=== PATIENT | male | born 1970 | race Caucasian/White ===

== ENCOUNTER 2025-01-16 08:50 | Outpatient (AMB) | payer OTHER, SELFPAY ==
--- NOTE | 2025-01-16 08:58 | A.OFFPC_ITS ---
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 Intake Note: patient here for new patient visit Exercise Science Internship Required: No Allergies No Known Allergies Allergy (Verified 01/16/25 09:12) Medication List - Last Reconciled 01/16/25 by Bernadine Todd CNP No Known Home Meds Tobacco use date assessed: 01/16/25 Dental Screening Dental Screen Date: 01/16/25 Did you have a dental visit in the last 12 months?: Yes Did you have a dental problem in the last 6 months where you did not have access to dental care?: No Was dental information given to patient?: Patient has dentist HPI HPI Comments History of Present Illness Details 54-year-old male presents to establish c are. Prior PCP? - [facility] Last office visit/CPE/labs - 2018 Acute issue(s) - None Past Medical History - Deviated septum Surgical History - Hyperopia, Deviated septum repair Family History - Adopted and does not know much about h is biological relative - Dad: Colon cancer Social History - Nonsmoker. Does not vape. Drinks 1-2 g lasses of wine 4-5 days weekly and 5-6 beers on weekends. Occasional cannabis gummy or smoke a joint - Has been making healthy dietary choice s. Exercises routinely. Generally sleep well Health maintenance - Last eye exam was a year and half ago. Encouraged to follow up with his ophthalmology for routine eye exam - Last dental visit was 6 months ago for cleaning - Last tetanus vaccine was more than 10 years ago; received Tdap vaccine today - Has not been vaccinated for the flu season; declines vaccination - He has not been vaccinated for shingle s. Encouraged to get vaccinated from the local pharmacy - He has never had a colonoscopy. Referr ed to [facility] for [facility]oscopy [facility], [facility] Medical History Deviated septum Family History (Updated 01/16/25 @ 09:11 by Akila Marks MA) Father Colon cancer Social History (Updated 01/16/25 @ 09:04 by Akila Marks MA) Housing: House Patient Tobacco Use Status: Never used Tobacco e-Cigarette/Vaping Use: Never Used Second Hand Smoke Exposure: No Substance Use Type: Marijuana service: No Current occupational status: employed Current occupation: sell whole sale alcohol Current occupational exposures/hazards: No Cognitive needs: No Hearing needs: No Vision needs: Yes Questionnaire PHQ-9 Over the last 2 weeks, how often have you been bothered by any of the following problems? 1. Little interest or pleasure in doing things: not at all 2. Feeling down, depressed, or hopeless: not at all 3. Trouble falling or staying asleep, or sleeping too much: not at all 4. Feeling tired or having little energy: not at all 5. Poor appetite or overeating: not at all 6. Feeling bad about yourself - or that you are a failure or have let yourself or your family down: not at all 7. Trouble concentrating on things, such as reading the newspaper or watching television: not at all 8. Moving or speaking so slowly that other people could have noticed. Or the opposite - being so fidgety or restless that you have been moving around a lot more than usual: not at all 9. Thoughts that you would be better off or of hurting yourself in some way: not at all Total score: 0 Depression Screening Interpretation: Negative Depression Screening Done: Yes 91734 - PHQ-9 Billing: Yes Source: Developed by Drs. Jose Orta, Lauren Fernandez, Jeronimo Campo and colleagues, with an educational myrna from [employer]. Thrive Questionnaire Date Thrive assessed: 01/16/25 I am a: Patient What is your living situation today?: I have a steady place to live Within the past 12 months, did the food you bought not last and you didn't have the money to get more?: Never true Within the past 12 months, did you worry whether your food would run out before you got money to buy more?: Never true Do you have trouble paying for medicines?: No Do you have trouble getting transportation to medical appointments?: No Do you have trouble paying your heating and electricity bill?: No Do you have trouble taking care of your child, family member or friend?: No Do you have trouble with day-to-day activities such as bathing, preparing meals, shopping, managing finances, etc.?: No Are you currently unemployed and looking for a job?: No Are you interested in more education?: No Please select the resources that you would like help with: None Currently or been in a relationship where the following occur: No concerns reported THRIVE Score: 0 AUDIT C Alcohol Use Questionnaire (AUDIT-C) 1. How often do you have a drink containing alcohol?: 2-3 times a week 2. How many drinks containing alcohol do you have on a typical day when you are drinking?: 3 or 4 3. How often do you have six or more drinks on one occasion?: Less than monthly Total Score: 5 Score Reviewed/Action Taken: Yes CAMILLA-7 AMB Questionnaire CAMILLA-7 Date CAMILLA - 7 assessed: 01/16/25 Feeling nervous, anxious, or on edge: 0 = Not at all Not being able to stop or control worryin = Not at all Worrying too much about different things: 0 = Not at all Trouble relaxin = Not at all Being so restless that it is hard to sit still: 0 = Not at all Becoming easily annoyed or irritable: 0 = Not at all Feeling afraid as if something awful might happen: 0 = Not at all Total CAMILLA-7 score (0-4 normal; 5-9 mild; 10-14 moderate; 15-21 severe): 0 Source: Developed by Drs. Jose Orta, Lauren Fernandez, Jeronimo Campo and colleagues, with an educational myrna from [employer]. CAMILLA-7 Assessment Billing CAMILLA-7 Assessment Tool: CAMILLA-7 Assessment 38192 Review of Systems Const Details: Denies chills, Denies fatigue, Denies fever(s), Denies headache(s) and Denies weakness HEENT Denies change in vision, Denies dizziness, Denies headache(s), Denies hearing loss, Denies nasal congestion, Denies sinus pain, Denies sinus pressure and Denies sore throat Card Denies chest pain, Denies lightheadedness, Denies dyspnea and Denies other (palpitations) Resp Denies cough, Denies dyspnea and Denies wheezing GI Denies abdominal pain, Denies melena, Denies hematochezia, Denies change in bowel habits, Denies dyspepsia and Denies nausea Denies hematuria and Denies dysuria Musc Denies abnormal gait, Denies myalgias, Denies arthralgias, Denies numbness and Denies tingling Skin/Breast Denies rash, Denies unusual bruising and Denies wounds Neuro Denies abnormal gait, Denies dizziness, Denies headache(s), Denies memory loss, Denies numbness, Denies Sensory deficit (Neuro), Denies tingling and Denies weakness Psych Denies anxiety, Denies depression and Denies memory loss Endo Denies cold intolerance, Denies fatigue, Denies heat intolerance, Denies polydipsia and Denies polyuria Jose/Lymph Denies easy bleeding and Denies easy bruising Aller/Immun Denies wheezing Physical exam (Primary Care) Vital Signs: Last Vital Signs Temp 97.6 F 01/16/25 09:05 Pulse 70 01/16/25 09:05 Resp 16 01/16/25 09:05 BP 120/80 01/16/25 09:18 Pulse Ox 99 01/16/25 09:05 Oxygen Delivery Method Room Air 01/16/25 09:05 BMI result Body Mass Index 29.6 Tobacco/Smoking Status: Tobacco use Status Tobacco use date assessed 01/16/25 01/16/25 09:05 Patient Tobacco Use Status Never used Tobacco 01/16/25 09:05 e-Cigarette/Vaping Use Never Used 01/16/25 09:05 PHQ-9: PHQ-9 Score PHQ-9: Total score 0 01/16/25 09:41 Depression Screening Interpretation: Negative Thrive Assessment: Date of Thrive Assessment Date Thrive assessed 01/16/25 01/16/25 09:00 Currently or been in a relationship where the following occur: No concerns reported Const Other: General: no acute distress, well developed, alert and awake Nutritional Appearance: well nourished Orientation/consciousness: patient oriented x3 HENMT Head: Yes normocephalic and Yes atraumatic Ears: hearing grossly normal bilaterally and TM's normal bilaterally General nose exam: Normal external nose present and Normal nares present Mouth: Normal oral and palatal mucosa present and moist mucous membranes Teeth and gingiva: dentition normal Throat: Yes oropharynx normal Eyes Pupils: Equal, round and reactive pupils present and Pupil accommodation reflex normal EOM: EOMs intact bilaterally Neck Neck: Yes normal visual inspection, Yes no lymphadenopathy and Yes trachea midline Thyroid: Thyroid normal Carotids: no bruits Lymphatic: no lymphadenopathy noted Chest Chest palpation & inspection: normal inspection of the chest Resp Effort & Inspection: normal respiratory effort Auscultation: clear to auscultation bilaterally Cardio Rate: regular rate Rhythm: regular rhythm Heart sounds: S1 normal heart sound present, S2 normal heart sound present, no gallops, no murmurs and no rubs Bruits: no abdominal aortic bruits and no carotid bruits GI Palpation (GI): No Abdominal aortic bruit present, Soft to palpation, nontender, No hepatosplenomegaly present and No Rebound tenderness present Auscultation: normal bowel sounds General: Yes no CVA tenderness Back/Spine/Pelvis Back: no CVA tenderness Cervical Spine: cervical ROM normal and No Cervical spine tenderness Thoracic/Lumbar Spine: thoraco-lumbar ROM normal, No pain with thoraco-lumbar ROM, No thoracic spinal tenderness and No lumbar spinal tenderness Skin General: warm and dry. Normal skin color. Normal skin turgor Lesions: no lesions Rashes: no rashes Trauma: no lacerations or abrasions Wounds: no wounds Nails: normal Neuro General: patient oriented x3, gait normal and CN's II-XI intact bilaterally Cranial nerves: Yes Equal, round and reactive pupils present Cognition (Neuro): normal cognition Gait exam (Neuro): Normal gait present Motor exam (neuro): 5/5 motor strength present throughout Sensory Exam: No Sensory deficit (Neuro) Deep tendon reflexes (DTR's): Right patellar reflex intensity grade: 2+ and Left patellar reflex intensity grade: 2+ Extrem General: Yes normal to inspection, No edema and No calf tenderness Psych Appearance: grossly normal Affect: normal affect Attitude: cooperative Thought process: Normal thought process present Immunizations Boostrix Tdap 2.5 Lf unit-8 mcg-5 Lf/0.5 mL intramuscular syringe Performing Provider: Bernadine Todd CNP Performing Location: [facility] Administered by: Nevaeh Celeste RN on 01/16/25 09:41 Dose Route Admin Location Dispensed Lot Number Expiration Date [facility] 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 0.5 mL IM Left Deltoid 0.5 mL [id number] 09/23/26 [id number] [employer] VIS Given Date VIS Provided VIS Publication Date 01/16/25 Single Vaccine 21 Eligibility Eligibility Date Funding Source Not [facility] Eligible 01/16/25 Private Coding Level of Care Code New Pt Prev Care 40-64y(76293) Diagnoses Normal physical examination, routine Z00.00 Myopia H52.10 Colon cancer screening Z12.11 Vaccine counseling Z71.85 Laboratory tests ordered as part of a complete physical exam (CPE) Z00.00 Additional Codes CAMILLA-7 Assessment Billing - CAMILLA-7 Assessment Tool: CAMILLA-7 Assessment 74682 ([id number]) PHQ-9 - 47227 - PHQ-9 Billing: Yes ([id number]) Assessment & Plan Assessment & Plan (1) Normal physical examination, routine: Code(s): Z00.00 - Encounter for general adult medical examination without abnormal findings Category: Medical Plan: No significant functional limitation noted. Healthy diet and routine exercise encouraged. Advised to limit alcohol intake to no more than 2 drinks daily and 5 drinks weekly. Perform lab work and follow-up for telehealth visit in 2-3 weeks. Return sooner with symptoms or concerns. Verbalized understanding and agreed with the treatment plan. (2) Myopia: Code(s): H52.10 - Myopia, unspecified eye Category: Medical Plan: He wears prescription glasses. His last eye exam was a year and half ago. Encouraged to follow up with his ophthalmology for routine eye exam. Verbalized understanding and agreed with the plan. (3) Colon cancer screening: Code(s): Z12.11 - Encounter for screening for malignant neoplasm of colon Category: Medical Plan: He has never had a colonoscopy. Referred to [facility] for a colonoscopy. (4) Vaccine counseling: Code(s): Z71.85 - Encounter for immunization safety counseling Category: Medical Plan: He has not been vaccinated for shingles. Encouraged to get vaccinated from the local pharmacy. Verbalized understanding and agreed the plan. (5) Laboratory tests ordered as part of a complete physical exam (CPE): Code(s): Z00.00 - Encounter for general adult medical examination without abnormal findings Category: Medical Plan: Fasting labs ordered as part of a complete physical exam. Advised to fast for at least 10 hours before getting labs drawn. May drink water Verbalized understanding and agreed with treatment plan. Orders: Orders Complete Blood Count Auto Diff Today Z00.00 - Encounter for general adult medical examination without abnormal findings Microalbumin, Random (w Creat) Today Z00.00 - Encounter for general adult medical examination without abnormal findings PSA, Ultra Sensitive Today Z00.00 - Encounter for general adult medical examination without abnormal findings Vitamin D 25-OH Total Today Z00.00 - Encounter for general adult medical examination without abnormal findings TDaP Immunization Today Z23 - Encounter for immunization [employer]. Panel Fast Today Z00.00 - Encounter for general adult medical examination without abnormal findings Lipid Panel Today Z00.00 - Encounter for general adult medical examination without abnormal findings TSH reflex Free T4 Today Z00.00 - Encounter for general adult medical examination without abnormal findings UA CC w/rflx Micro + Cult Today Z00.00 - Encounter for general adult medical examination without abnormal findings Referrals Gastroenterology Referral Z12.11 - Encounter for screening for malignant n eoplasm of colon
[2025-01-16 09:05] VITALS: BP 145/81; PULSE 70; RESP 16; TEMP 36.4; O2SAT 99; BMI 29.6
[2025-01-16 09:18] VITALS: BP 120/80
== END 2025-01-16 09:40 | disposition home or self-care (01) ==
LOC: HO.HMCFM 08:51
PROVIDERS: PCP Nurse Practitioner Family; Visit Provider Nurse Practitioner Family
DX: Z00.00 Encounter for general adult medical examination without abnormal findings (principal); H52.10 Myopia, unspecified eye; Z12.11 Encounter for screening for malignant neoplasm of colon; Z71.85 Encounter for immunization safety counseling; Z23 Encounter for immunization

== ENCOUNTER → 2025-01-16 08:50 | Outpatient (BNVA) | payer OTHER, SELFPAY | PROVIDERS: PCP Nurse Practitioner Family; Visit Provider Nurse Practitioner Family | DX: Z00.00 Encounter for general adult medical examination without abnormal findings (principal); Z23 Encounter for immunization; H52.10 Myopia, unspecified eye; Z71.85 Encounter for immunization safety counseling | CPT/HCPCS: 90471; 90715; 96127 ==

== ENCOUNTER 2025-01-26 10:01 | Outpatient (REF) | payer OTHER, SELFPAY ==
[2025-01-26 11:37] LABS: Appearance Urine Clear; Color Urine Yellow; Glucose Urine UA Negative (Negative); Leukocyte Esterase Urine Negative (Negative); Nitrite Urine Negative (Negative); PH 5.5 (5.0-9.0); Specific Gravity - Urine 1.025 (1.005-1.025); Urine Blood Negative (Negative); Urine Ketones Trace mg/dL (Negative); Urine Protein Negative (Neg-Trace)
[2025-01-26 11:46] LABS: MANUAL DIFF FLAG NO
[2025-01-26 11:50] LABS: Basophils Percent Auto 0.3 % (0-2); Eosinophils Absolute Auto 0.1 X10*3/uL (0.0-0.4); Eosinophils Percent Auto 1.8 % (0-4); Hematocrit 40.8 % (42.0-52.0); Hemoglobin 13.5 g/dl (14.0-18.0); Imm Gran Abs Auto 0.01 X10*3/uL (0.00-0.03); Imm Gran Pct Auto 0.3 % (0.0-0.4); Lymphocytes Absolute Auto 1.9 X10*3/uL (1.2-4.9); Lymphocytes Percent Auto 46.6 % (20-40); Mean Corpuscular HGB Conc 33.1 g/dl (31.0-36.0); Mean Corpuscular Hemoglobin 31.5 pg (27.0-33.0); Mean Corpuscular Volume 95.1 fL (80.0-98.0); Mean Platelet Volume 9.7 fL (9.4-12.4); Monocytes Absolute Auto 0.3 X10*3/uL (0.1-1.2); Monocytes Percent Auto 7.1 % (2-11); Neutrophils Absolute Auto 1.8 x10*3/uL (2.0-8.3); Neutrophils Percent Auto 43.9 % (45-73); Platelet Count 230 X10*3/uL (160-400); Red Blood Count 4.29 X10*6/uL (4.60-5.80); Red Cell Distribution Width 12.9 % (11.0-16.0)
[2025-01-26 15:00] LABS: Alanine Aminotransferase 38 U/L (0-40); Albumin Level 4.3 g/dL (3.5-5.0); Anion Gap 10 (12-20); Aspartate Amino Transferase 26 U/L (5-37); Bilirubin Total 0.6 mg/dL (0.0-1.0); Blood Urea Nitrogen 17 mg/dL (9-16); Calcium 9.2 mg/dL (8.4-10.2); Carbon Dioxide 28 mmol/L (22-29); Chloride 107 mmol/L (96-108); Cholesterol 270 mg/dL (<200); Estimated Glomerular Filt Rate > 60; Glucose Fasting 106 mg/dL (60-99); HDL Cholesterol 54 mg/dL (>40); LDL Cholesterol Calculated 182 mg/dL (<100); Potassium 4.1 mmol/L (3.3-5.1); Sodium 141 mmol/L (135-145); Total Protein 6.9 g/dL (6.5-8.0); Triglycerides 171 mg/dL (<150)
[2025-01-26 15:04] LABS: TSH reflex Free T4 2.06 uIU/mL (0.32-4.0); Vitamin D 25-OH Total 77.9 ng/mL (>30)
[2025-01-26 15:58] LABS: Alkaline Phosphatase 70 U/L (39-117)
[2025-01-30 15:24] LABS: PSA, Ultra Sensitive 0.95 ng/mL
== END 2025-01-26 10:02 | disposition home or self-care (01) ==
LOC: HO.WFDLDS 10:01
PROVIDERS: Visit Provider Nurse Practitioner Family
DX: Z00.00 Encounter for general adult medical examination without abnormal findings (principal); Z12.5 Encounter for screening for malignant neoplasm of prostate; Z13.6 Encounter for screening for cardiovascular disorders
CPT/HCPCS: 36415; 80053; 80061; 81003; 82043; 82306; 82570; 84153; 84443; 85025

== ENCOUNTER 2025-01-31 10:21 | Outpatient (AMB) | payer OTHER, SELFPAY ==
--- NOTE | 2025-01-31 10:18 | A.OFFPC_ITS ---
Intake Visit Reasons: 2 wks telehealth labs review Intake Note: patient here for 2wks telehealth follow up for lab review Administrative Support Coordinator Required: No Allergies No Known Allergies Allergy (Verified 01/31/25 10:19) Tobacco use date assessed: 01/31/25 Dental Screening Dental Screen Date: 01/31/25 Did you have a dental visit in the last 12 months?: Yes Did you have a dental problem in the last 6 months where you did not have access to dental care?: No Was dental information given to patient?: Patient has dentist HPI HPI Comments History of Present Illness Details 54-year-old male presents for telehealth visit for review of recent lab results. He offers no complaints and denies acute symptoms at this time. [facility] Medical History Deviated septum Family History (Updated 01/16/25 @ 09:11 by Akila Marks MA) Father Colon cancer Social History (Updated 01/16/25 @ 09:04 by Akila Marks MA) Housing: House Patient Tobacco Use Status: Never used Tobacco e-Cigarette/Vaping Use: Never Used Second Hand Smoke Exposure: No Substance Use Type: Marijuana service: No Current occupational status: employed Current occupation: sell whole sale alcohol Current occupational exposures/hazards: No Cognitive needs: No Hearing needs: No Vision needs: Yes Questionnaire Thrive Questionnaire Date Thrive assessed: 01/13/25 I am a: Patient What is your living situation today?: I have a steady place to live Within the past 12 months, did the food you bought not last and you didn't have the money to get more?: Never true Within the past 12 months, did you worry whether your food would run out before you got money to buy more?: Never true Do you have trouble paying for medicines?: No Do you have trouble getting transportation to medical appointments?: No Do you have trouble paying your heating and electricity bill?: No Do you have trouble taking care of your child, family member or friend?: No Do you have trouble with day-to-day activities such as bathing, preparing meals, shopping, managing finances, etc.?: No Are you currently unemployed and looking for a job?: No Are you interested in more education?: No Please select the resources that you would like help with: None Currently or been in a relationship where the following occur: No concerns reported THRIVE Score: 0 CAMILLA-7 AMB Questionnaire CAMILLA-7 Date CAMILLA - 7 assessed: 01/16/25 Source: Developed by Drs. Jose Orta, Lauren Fernandez, Jeronimo Campo and colleagues, with an educational myrna from [employer]. Review of Systems Const Details: Denies chills, Denies fatigue, Denies fever(s), Denies headache(s) and Denies weakness Cardiac Denies chest pain, Denies claudication, Denies leg edema, Denies lighthea dedness, Denies palpitations, Denies dyspnea, Denies dyspnea on exertion, Denies orthopnea and Denies other (Loss of consciousness) Resp Denies cough, Denies excessive phlegm production, Denies dyspnea, Denies dyspnea on exertion, Denies snoring and Denies wheezing Physical exam (Primary Care) Tobacco/Smoking Status: Tobacco use Status Tobacco use date assessed 01/31/25 01/31/25 10:20 Patient Tobacco Use Status Never used Tobacco 01/31/25 10:20 e-Cigarette/Vaping Use Never Used 01/31/25 10:20 Thrive Assessment: Date of Thrive Assessment Date Thrive assessed 01/13/25 01/31/25 10:20 Currently or been in a relationship where the following occur: No concerns reported Const Other: Patient is alert and oriented x3 Telehealth Telehealth Telehealth Platform: Telephone Location of provider rendering services: practice address Location of patient: address on file Patient Identification confirmed using: Name, : Yes Telehealth method: voice only Patient verbally consented to treatment: Yes Patient verbally consented to billing insurance company: Yes Patient informed of any privacy concerns related to visit: Yes Coding Level of Care Code Tele Est Pt Level 3 (86994) Diagnoses Hyperlipidemia E78.5 Elevated fasting glucose R73.01 Leukopenia D72.819 Normocytic anemia D64.9 Time Spent (min) 15 Assessment & Plan Assessment & Plan (1) Hyperlipidemia: Code(s): E78.5 - Hyperlipidemia, unspecified Category: Medical Plan: Recent triglycerides, total cholesterol, and LDL levels are elevated, 171, 270, and 182 respectively, HDL is normal. Advised to limit foods high in saturated fat and avoid foods high in trans fat. Routine exercise encouraged. Fast for 10-12 hours, may drink water, performed lipid panel blood work 2-3 days before next visit. Follow-up for telehealth visit in 2 months. Return sooner with symptoms or concerns. Verbalized understanding and agreed with the plan. (2) Elevated fasting glucose: Code(s): R73.01 - Impaired fasting glucose Category: Medical Plan: Recent fasting glucose is slightly elevated, 106. Routine exercise and healthy diet, including low carbs encouraged. Will recheck fasting glucose and make changes as needed. Verbalized understanding and agreed with the plan. (3) Leukopenia: Code(s): D72.819 - Decreased white blood cell count, unspecified Category: Medical Plan: Recent WBC is slightly low, 4.0; equivocal. Likely patient's baseline. Will recheck WBC and check folate and vitamin B12 levels and make changes as needed. (4) Normocytic anemia: Code(s): D64.9 - Anemia, unspecified Category: Medical Plan: Recent her recent H&H were slightly low, 4.29 and 13.5/40.8 respectively. Likely patient's baseline. Will recheck CBC and check iron profile, ferritin, vitamin B12, and folic levels. Will make changes as needed. Verbalized understanding and agreed with the plan. Orders: Orders Complete Blood Count no Diff 2 Months D64.9 - Anemia, unspecified Glucose Fasting 2 Months R73.01 - Impaired fasting glucose Lipid Panel 2 Months E78.5 - Hyperlipidemia, unspecified Vitamin B12 and Folate 2 Months D64.9 - Anemia, unspecified, D72.819 - Decreased white blood cell count, unspecified
--- OUTSIDE RECORDS SUMMARY | 2025-01-31 11:34 | XMS_ITS | Clinical Summary ---
Author Organization [facility] Address [address] [place] [address] Care Team Providers Care Executive Vice President And Chief Operating Officer Name Role Phone Karime Kim MD Primary Care Provider Unavaila ble Allergies No known active allergies Medications No known medications Active Problems Problem Noted Date Overweight 10/30/2011 NO ACTIVE MEDICAL PROBLEMS 08/14/2011 Immunizations Name Administration Dates Next Due TD (STATE SUPPLIED FOR ADULTS AND CHILDREN) 07/16 Tdap 10/30/2011 Family History * Patient is adopted Relation Name Status Comments Daughter Alive 2 healthy Father Alive adopted dad - a ge 76 Emphysema , otherwise fair health; SCC Maternal Grandfather unknown Maternal Grandmother unknown Mother (Age 64) adopted mo m - breast cancer Paternal Grandfather unknown Paternal Grandmother unknown Sister Alive not biologic Social History Tobacco Use Types Packs/Day Years Used Date Smoking Tobacco: Never Smokeless Tobacco: Never Alcohol Use Standard Drinks/Week Comments Yes 11.7 (1 standard drink = 0.6 oz pure alcohol) Sex Assigned at Date Recorded Not on file Last Filed Vital Signs Vital Sign Reading Time Taken Comments Blood Pressure 118/80 04/13/2019 11:30 AM EDT Pulse 84 04/13/2019 11:30 AM EDT Temperature 36.7 ??C (98.1 ??F) 04/13/2019 11:30 AM E DT Respiratory Rate 16 04/13/2019 11:30 AM EDT Oxygen Saturation 98% 08/19/2006 3:41 PM EST Inhaled Oxygen Concentration - - Weight 93.9 kg (207 lb) 04/13/2019 11:30 AM EDT Height 182.9 cm (6') 04/13/2019 11:30 AM EDT Body Mass Index 28.07 04/13/2019 11:30 AM EDT Plan of Treatment Health Maintenance Due Date Last Done Comments Covid-19 Vaccine (#1) 04[birth year]20/1971 BASELINE HEALTH EXAM 40-64 04/13/202104/13, 04/13/2019, 12/02/2016, Additional history exists COLON CANCER SCREENING 2021 SHINGLES VACCINE (1 of 2) 2021 DTAP/TDAP/TD (2 - Td or Tdap) 10/30/2021 10/30/2011, 08/12/2005 CHOLESTEROL SCREENING 04/13/2024 04/13/2019 , 11/21/2009, 03/23/2006, Additional history exists BMI CHECK/ADVISE 09/14/2024 04/13/2019, 12/02/2016 INFLUENZA (Season Ended) 2025 PNEUMOCOCCAL VACCINE FOR HIG H RISK PATIENTS (#1) 2036 Care Teams Executive Vice President And Chief Operating Officer Relationship Specialty Start Date End Date Karime Kim MD PCP - General Internal Medicine 10/29/16
--- OUTSIDE RECORDS SUMMARY | 2025-01-31 11:34 | XMS_ITS | Encounter Summary ---
Author Organization [facility] Address [address] [place] [address] [address] Team [address] Care [address] Shaft And Steering Post Repairer Name Role Phone Karime Kim MD Primary Care Provider Karoline murillo Encounter Details Date Type Department Care Team Description 11/26/2016 Bowling Ball Grader Report Medical Records [address] [place] [id number] Sunil Lima MD Social History Tobacco Use Types Packs/Day Years Used Date Smoking Tobacco: Never Smokeless Tobacco: Never Alcohol Use Standard Drinks/Week Comments Yes 0 (1 standard drink = 0.6 oz pur e alcohol) 8/wk Sex Assigned at Date Recorded Not on file documented as of this encounter Plan of Treatment Not on file documented as of this encounter Visit Diagnoses Not on filedocumented in this encounter Care Teams Drive Shaft And Steering Post Repairer Relationship Specialty Start Date End Date Karime Kim MD PCP - General Internal Medicine 10/29/16 documented as of this encounter
== END 2025-01-31 11:15 | disposition home or self-care (01) ==
LOC: HO.HMCFM 10:21
PROVIDERS: PCP Nurse Practitioner Family; Visit Provider Nurse Practitioner Family
DX: E78.5 Hyperlipidemia, unspecified (principal); R73.01 Impaired fasting glucose; D72.819 Decreased white blood cell count, unspecified; D64.9 Anemia, unspecified

== ENCOUNTER → 2025-01-31 10:21 | Outpatient (BNVA) | payer OTHER, SELFPAY | PROVIDERS: PCP Nurse Practitioner Family; Visit Provider Nurse Practitioner Family | DX: Z13.89 Encounter for screening for other disorder (principal) ==